=== PATIENT | male | born 1970 | race Two or more races ===

== ENCOUNTER 2018-11-20 11:54 | Emergency (ER) | payer MEDICAID, OTHER ==
[~2018-11-20] VITALS: Ht 185.4 cm; Wt 136.1 kg
[2018-11-20 14:39] LABS: Basophils # (auto) 0 uL; Basophils % (auto) 0.6 % (0.0-2.0); Eosinophils # (auto) 0.2 uL; Eosinophils % (auto) 2.7 % (0.0-7.0); Hematocrit 49.1 % (41.0-53.0); Hemoglobin 16.7 g/dL (13.5-17.5); Lymphocytes # (auto) 1.6 uL; Lymphocytes % (auto) 22.7 % (10.0-50.0); Mean Corpuscular Hemoglobin 30.7 pg (28.0-32.0); Mean Corpuscular Hgb Conc. 33.9 g/dL (32.0-36.0); Mean Corpuscular Volume 90.6 fL (80.0-100.0); Monocytes # (auto) 0.4 uL; Monocytes % (auto) 6.1 % (0.0-12.0); Neutrophils # (auto) 4.7 uL; Neutrophils % (auto) 67.9 % (37.0-80.0); Nucleated Red Blood Cells % 0.1 %; Platelet Count (auto) 250 10^3/uL (140-450); Red Blood Cells 5.42 10^6/uL (4.5-5.90); Red Cell Distribution Width 12.9 % (11.8-14.3); White Blood Cell 6.9 10^3/uL (4.4-10.8)
[2018-11-20 15:02] LABS: Alanine Aminotransferase 44 U/L (16-61); Albumin 4.1 g/dL (3.4-5.0); Anion Gap 8 (5-15); BUN/Creatinine Ratio 9.2; Blood Urea Nitrogen 7 mg/dL (7-18); Calcium 9.4 mg/dL (8.5-10.1); Carbon Dioxide 25 mmol/L (21-32); Chloride 106 mmol/L (98-107); GFR African American 141 mL/min; GFR Non-African American 117 mL/min; Glucose 94 mg/dL (74-106); Potassium 4.2 mmol/L (3.5-5.1); Sodium 139 mmol/L (136-145)
[2018-11-20 15:07] LABS: Alkaline Phosphatase 137 U/L (45-117); Aspartate Aminotransferase 29 U/L (15-37); Bilirubin, Total 0.6 mg/dL (0.2-1.0); Total Protein 7.9 g/dL (6.4-8.2)
[2018-11-20 16:50] VITALS: BP 133/83
== END 2018-11-20 16:57 | disposition home or self-care (01) ==
LOC: ER 11:58
DX: R07.89 Other chest pain (principal); E78.5 Hyperlipidemia, unspecified
CPT/HCPCS: 36415; 71046; 80053; 84484; 85025; 93005